=== PATIENT | male | born 1980 | race Caucasian/White ===

== ENCOUNTER → 2019-04-23 15:09 | Outpatient (CLI) | payer OTHER, SELFPAY ==
--- NOTE | 2019-04-23 15:14 | XR_ITS ---
PROCEDURE: XR CHEST 2V CLINICAL HISTORY: L Rib Injury Pain following injury COMPARISON: No exams were available for comparison FINDINGS: The cardiomediastinal silhouette and pulmonary vascularity are within normal limits. The lungs are clear without infiltrates, suspicious nodules, or pleural effusions. No acute bony abnormalities. IMPRESSION: No acute findings. Dictated by: Carlo Stewart MD 04/23/2019 16:08 Electronically signed by Carlo Stewart MD in [place] 04/23/2019 16:08
== END ==
PROVIDERS: PCP Nurse Practitioner Family; Visit Provider Nurse Practitioner Family
DX: S29.9XXA Unspecified injury of thorax, initial encounter (principal)
CPT/HCPCS: 71046

== ENCOUNTER 2019-07-29 19:45 | Emergency (ER) | payer OTHER, SELFPAY ==
[2019-07-29 19:48] VITALS: BP 143/88; PULSE 78; RESP 19; TEMP 36.8; O2SAT 100; BMI 26.6
--- NOTE | 2019-07-29 20:06 | HMH.EDUTC ---
[facility] [place] Clinical Impression: Cellulitis Qualifiers: Site of cellulitis: unspecified site Qualified Code(s): L03.90 - Cellulitis, unspecified Disposition: Home, Self-Care Condition on Discharge: Good Instructions: Cellulitis, Amoxicillin and Clavulanic Acid Additional Instructions: Keep wound area clean and dry *Take medication as prescribed Follow up with family doctor if no improvement or any worsening of symptoms in the next 48-72 hours Return if needed Straight to ER if any life threatening symptoms Prescriptions: Amoxicillin/Potassium Clav [Augmentin 875-125 Tablet] 1 tab PO Q12H 7 Days #14 tab Transmission Status: Pending to [facility] Referrals: Magdi Ward MD [Primary Care Provider] - As needed Time of Disposition: 20:21 Medical Decision Making - Rony Inquiry Pt receiving controlled substance: No Rony was queried for this patient: No Vital Signs: 07/29/19 19:48 Temperature 98.2 F Temperature Source Oral Pulse Rate [Radial] 78 Respiratory Rate 19 Blood Pressure [Right Arm] 143/88 H Blood Pressure Mean [Right Arm] 106 Blood Pressure Source [Right Arm] Automatic Cuff Blood Pressure Position [Right Arm] Sitting 02 Sat by Pulse Oximetry 100 Oxygen Delivery Method Room Air [facility] [place] - General Stated complaint: ao 620 CAT BIT l THUMB Time Seen by Provider: 07/29/19 20:06 Mode of Arrival: Ambulatory Source of Information: Patient Limitations: No Limitations Description of Symptoms (Recalled from Triage Doc. by RN): CATFISH BITE HEENT Symptoms (Recalled from RN notes): No Resp Symptoms (Recalled from RN notes): No Skin Symptoms (Recalled from RN notes): Yes MS Symptoms (Recalled from RN notes): No Functional Status (Recalled from RN notes): WNL - History of Present Illness Provider Complaint: Patient states that he was fishing a couple of days ago and a catfish bite him on the left thumb States that ever since he has been having swelling and redness in his left thumb States that he thought it was infected and poked it to see if any infection come out but nothing did and today it was swollen worse so he came in - Related Data Home Medications Medication Instructions Recorded Confirmed buprenorphine 8 mg-naloxone 2 mg SUBLINGUAL 04/23/19 05/06/19 sublingual tablet Previous Rx's Medication Instructions Recorded ibuprofen 600 mg tablet 600 mg PO TID 14 Days #42 tab 05/06/19 prednisone 20 mg tablet 20 mg PO BID 5 Days #10 tab 05/06/19 Amoxicillin/Potassium Clav 1 tab PO Q12H 7 Days #14 tab 07/29/19 [Augmentin 875-125 Tablet] Allergies Allergy/AdvReac Type Severity Reaction Status Date / Time No Known Allergies Allergy Verified 05/06/19 14:24 - Worker's Comp Is this a Worker's Comp case?: No [facility] History - Hepatitis A Screen Drug use history?: No High risk sexual behaviors?: No History of sexually transmitted infection?: No Currently employed?: No Childcare worker?: No Do you have indoor plumbing?: Yes Do you have electricity?: Yes Attestation statement:: This patient has been screened for Hepatitis A risk factors. I have reviewed the patient's past medical history: Yes - Social History Educational Level: Completed High School Smoking Status: Never smoker Tobacco Type: smokeless tobacco Alcohol Intake: never Substance Use Type: former substance user, painkillers, prescription drug Occupational Status: employed Housing: house Household Members: spouse ROS Obtained: Yes All systems reviewed & no additional complaints, Yes Systems reviewed as appropriate & no additional complaints - Constitutional Constitutional: Reports system reviewed and no additional complaints, except as docu - Eyes Eyes: Reports system reviewed and no additional complaints, except as docu - ENT Ears, Nose, Mouth, and Throat: Reports system reviewed and no additional complaints, except as docu - Cardiovascular Cardiovascular: Reports system revi
[2019-07-29 20:30] VITALS: BP 143/88; PULSE 78; RESP 19; TEMP 36.8; O2SAT 100
== END 2019-07-29 20:31 | disposition home or self-care (01) ==
PROVIDERS: Emergency Provider Nurse Practitioner; PCP Emergency Medicine
DX: L03.012 Cellulitis of left finger (principal)
CPT/HCPCS: 99201

== ENCOUNTER 2019-08-11 11:19 | Emergency (ER) | payer OTHER, SELFPAY ==
[2019-08-11 11:30] VITALS: BP 138/69; PULSE 92; RESP 18; TEMP 37.2; O2SAT 100; BMI 25.8
[2019-08-11 11:49] VITALS: BMI 25.8
--- NOTE | 2019-08-11 11:50 | XR_ITS ---
PROCEDURE: XR ANKLE RT 2V CLINICAL INDICATION: twisted ankle Twisting injury with pain COMPARISON: No exams were available for comparison FINDINGS: Prominent soft tissue swelling is present laterally. No obvious fracture or dislocation. IMPRESSION: Soft tissue swelling otherwise negative Dictated by: Carlo Stewart MD 08/11/2019 12:20 Electronically signed by Carlo Stewart MD in [place] 08/11/2019 12:20
--- NOTE | 2019-08-11 12:06 | XR_ITS ---
PROCEDURE: XR FOOT RT 2V CLINICAL INDICATION: twisted R foot/ankle Pain COMPARISON: No exams were available for comparison FINDINGS: No fracture or dislocation. No lytic or blastic change. There is normal mineralization. The joint spaces are well-preserved. No significant degenerative/arthritic changes. No erosive changes evident. Other findings:None. IMPRESSION: No acute findings. Dictated by: Carlo Stewart MD 08/11/2019 12:19 Electronically signed by Carlo Stewart MD in [place] 08/11/2019 12:19
--- NOTE | 2019-08-11 12:17 | HMH.EDEXTP ---
ED Disposition Clinical Impression: Ankle sprain and strain Disposition: Home, Self-Care Condition on Discharge: Good Instructions: Sprain Prescriptions: Nabumetone 750 mg PO BID 10 Days #20 tab Transmission Status: Sent to [facility] Referrals: Magdi Ward MD [Primary Care Provider] - - Critical Care Critical Care Time: No Attestation: On 08/11/19, the high probability of a clinically significant, sudden or life threatening deterioration of the following system(s) required my full and direct attention, intervention and personal management. The time I documented below is in addition to time spent performing reported procedures but includes the following listed in this critical care notation. Medical Decision Making - Medical Records Medical records reviewed: Yes: I reviewed the patient's medical records. - Rony Inquiry Pt receiving controlled substance: No Vital Signs: 08/11/19 11:30 Temperature 98.9 F Temperature Source Oral Pulse Rate [Left Radial] 92 H Respiratory Rate 18 Blood Pressure [Left Arm] 138/69 Blood Pressure Mean [Left Arm] 92 Blood Pressure Source [Left Arm] Automatic Cuff Blood Pressure Position [Left Arm] Sitting 02 Sat by Pulse Oximetry 100 Oxygen Delivery Method Room Air - Lab Data Lab results reviewed: Yes: I reviewed the patient's lab results. Orders (Tests/Meds): ORDERS Category Date Time Status Ankle XR - Right 2 Views [XR ankle RT 2V] Stat Exams 08/11/19 11:50 Taken Foot XR right 2 views [XR foot RT 2V] Stat Exams 08/11/19 12:06 Taken - Radiology Data #1 Image(s): Ankle, Foot/Toes Preliminary Findings: Normal/NAD Extremity Problem HPI - General Chief complaint: Extremity Injury, Lower Stated complaint: rt ankle pain AO 08/09/19 Time Seen by Provider: 08/11/19 12:00 Mode of Arrival: Ambulatory Source of Information: Patient Limitations: No Limitations Description of Symptoms (Recalled from ER Triage Doc. by RN): Pt reports R ankle pain 2 days ago. Pt states he stepped down off of a trailer into a hole. Swelling and bruising noted to R foot and ankle. - History of Present Illness HPI Narrative: 39-year-old male presents the emergency department complaining of right ankle pain. 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 Since then he has been elevating and taking Tylenol and ibuprofen and also has a ankle brace on as well. He states is difficult to ambulate. He rates his pain 4 out of 10 with ambulation. Which is the exacerbating factor. Alleviating factors include ice and elevation.Patient denies any recent cough or shortness of breath, patient denies any sore throat or headache, patient denies any loss of taste or smell, patient denies any malaise or fatigue, patient denies any abdominal pain nausea vomiting or diarrhea. - Related Data Home Medications Medication Instructions Recorded Confirmed buprenorphine 8 mg-naloxone 2 mg SUBLINGUAL 04/23/19 05/06/19 sublingual tablet Previous Rx's Medication Instructions Recorded ibuprofen 600 mg tablet 600 mg PO TID 14 Days #42 tab 05/06/19 prednisone 20 mg tablet 20 mg PO BID 5 Days #10 tab 05/06/19 Amoxicillin/Potassium Clav 1 tab PO Q12H 7 Days #14 tab 07/29/19 [Augmentin 875-125 Tablet] Nabumetone 750 mg PO BID 10 Days #20 tab 08/11/19 Allergies Allergy/AdvReac Type Severity Reaction Status Date / Time No Known Allergies Allergy Verified 05/06/19 14:24 [facility] History - Hepatitis A Screen Drug use history?: No High risk sexual behaviors?: No History of sexually transmitted infection?: No Currently employed?: No Childcare worker?: No Do you have indoor plumbing?: Yes Do you have electricity?: Yes Attestation statement:: This patient has been screened for Hepatitis A risk factors. I have reviewed the patient's past medical history: Yes Medical History: Denies:: Diabetes Mellitus Type 1, Diabetes Mellit
[2019-08-11 12:26] VITALS: BP 119/79; PULSE 79; RESP 18; TEMP 36.9; O2SAT 100
== END 2019-08-11 12:26 | disposition home or self-care (01) ==
PROVIDERS: Emergency Provider Family Medicine; PCP Emergency Medicine
DX: S93.401A Sprain of unspecified ligament of right ankle, initial encounter (principal); X50.1XXA Overexertion from prolonged static or awkward postures, initial encounter; Y92.89 Other specified places as the place of occurrence of the external cause
CPT/HCPCS: 73600; 73620; 99282

== ENCOUNTER 2022-03-28 19:26 | Emergency (ER) | payer OTHER, SELFPAY ==
[2022-03-28 19:45] VITALS: BP 132/87; PULSE 81; RESP 20; TEMP 36.9; O2SAT 98; BMI 28.8
--- NOTE | 2022-03-28 19:46 | EXP.UTC ---
Discharge Plan Disposition Patient Disposition: Home, Self-Care Condition: Good Prescriptions Prescriptions: New ofloxacin 0.3 % drops See Rx Instructions .ROUTE .COMPLEX Qty: 5 0RF Rx Instructions: put 2 drps into affected eyes every 2 h x 2 days, then 1 drp 4 times/day days 3-7 No Action buprenorphine-naloxone 8-2 mg tablet, sublingual SUBLINGUAL Label Comments: PLACE 2 TABLETS SUBLINGUAL ONCE A DAY nabumetone 750 MG tablet 750 mg PO BID 10 Days Qty: 20 0RF Referrals Follow up/Referrals: Provider,Referral, MD [Primary Care Provider] - See instructions Activity Restrictions/Add. Instructions Additional Instructions/Restrictions: Apply the Erythromycin eye ointment that we supplied you to your right eye every 4 hours while you are awake for the next 7 days. I am going to send an antibiotic eye drop to you pharmacy. You don't need to pick it up unless your symptoms spread to both eyes. Most people don't like to put the erythromycin ointment in both eyes because it clouds your vision for a short time. If you do start the eye drop, then stop the erythromycin eye ointment and use the drops in both eyes. Take tylenol or ibuprofen for pain or fever. Follow up with your regular doctor. If you're having at least some improvement in 48 hours then please follow up to have your eye rechecked. GO TO THE ER FOR ANY WORSENING SYMPTOMS Clinical Impressions Clinical Impression: Conjunctivitis of right eye Instructions Patient Instructions: How to Instill Eye Drops, DI for Conjunctivitis, Erythromycin Ophthalmic Discharge ED Provider: Endy Fu [facility] General Stated complaint: Right eye red and swollen Time Seen by Provider: 03/28/22 19:46 History of Present Illness Provider Complaint: He states that for the past 3 days he has had right eye irritation, swelling and matting with greenish discharge. He states that his symptoms started the day after he was grinding and felt like something went in his eye. Also, his daughter was diagnosed with conjunctivitis right before his symptoms started. So, he is not sure if he has an infection or something in his eye. He denies any vision changes and eye pain (other than the irritation feeling). Related Data Home Medications Medication Instructions Recorded Confirmed buprenorphine 8 mg-naloxone 2 mg sublingual 04/23/19 05/06/19 sublingual tablet Previous Rx's Medication Instructions Recorded nabumetone 750 mg tablet 750 mg PO BID 10 days #20 tabs 08/11/19 ofloxacin 0.3 % eye drops See Rx Instructions ophthalmic 03/28/22 (eye) .COMPLEX #5 mL Allergies Allergy/AdvReac Type Severity Reaction Status Date / Time No Known Allergies Allergy Verified 03/28/22 19:56 [facility] Disclaimer: The information contained in this section may have been updated after the patient was seen, as this information can be updated by other users. Social History Smoking Status: Unknown if ever smoked alcohol intake: never substance use type: former substance user current occupational status: other Travel in the last 8 weeks: None household members: spouse housing: house ROS Obtained: Yes All systems reviewed & no additional complaints except as documented Constitutional Constitutional: Denies chills and Denies fever(s) Eyes Eyes: Reports as per HPI and Reports eye discharge ENT Ears, Nose, Mouth, and Throat: Denies dizziness, Denies otalgia and Denies sore throat Cardiovascular Cardiovascular: Denies chest pain Respiratory Respiratory: Denies shortness of breath, Denies chest congestion, Denies cough, Denies stridor and Denies wheezing Gastrointestinal Gastrointestingal: Denies nausea or vomiting Musculoskeletal Musculoskeletal: Reports system reviewed and no additional complaints, except as documented and Denies arthralgias Integumentary/Breasts Skin/Breast: Denies
[2022-03-28 20:33] VITALS: BP 132/87; PULSE 81; RESP 20; TEMP 36.9; O2SAT 98
== END 2022-03-28 20:27 | disposition home or self-care (01) ==
PROVIDERS: Emergency Provider Nurse Practitioner Family
DX: H10.9 Unspecified conjunctivitis (principal)
CPT/HCPCS: 99212; 99213; G0463

== ENCOUNTER 2024-08-30 11:54 | Emergency (ER) | payer BC, SELFPAY ==
--- OUTSIDE RECORDS SUMMARY | 2024-08-30 11:59 | XMS_ITS | Clinical Summary ---
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 Name Role Phone Unavailable Primary Care Provider Unavailabl e Immunizations Immunization Administration Dates Next Due Hep A / Hep B 05/21/2012,11/13/2011 Family History Medical History Relation Name Comments Scoliosis Brother Arthritis Father Conversions - Other Maternal Grandfather Als-Parkinsonism/Dementia Complex 1 Arthritis Mother Scoliosis Sister Relation Name Status Comments Brother Father Maternal Grandfather Mother Sister Social History Tobacco Use Types Packs/Day Years Used Date Smoking Tobacco: Never Sex and Gender Information Value Date Recorded Sex Assigned at Not on file Legal Sex Male 5:56 PM EDT Gender Identity Not on file Sexual Orientation Not on file Last Filed Vital Signs Vital Sign Reading Time Taken Comments Blood Pressure - - Pulse - - Temperature - - Respiratory Rate - - Oxygen Saturation - - Inhaled Oxygen Concentration - - Weight 68.5 kg (150 lb 15.9 oz) 05/21/2012 2:19 PM EDT Height 172.7 cm (5' 8 ) 05/21/2012 2:19 PM EDT Body Mass Index 22.96 05/21/2012 2:19 PM EDT Plan of Treatment Not on file
[2024-08-30 12:01] VITALS: BP 143/88; PULSE 78; RESP 16; TEMP 36.8; O2SAT 100; BMI 30.4
[2024-08-30] MEDS: MORPHINE 4MG/ML SYRINGE 4 MG IV (12:16)
[2024-08-30] MEDS: LACTATED RINGERS 1000ML 1,000 ML 999 ML IV (12:16)
[2024-08-30] MEDS: ONDANSETRON 4MG/2ML VIAL 4 MG IV (12:16)
[2024-08-30 12:21] VITALS: BP 180/89; PULSE 74; RESP 16; O2SAT 100
--- NOTE | 2024-08-30 12:26 | PC.NURSE ---
[facility]
[2024-08-30 12:31] VITALS: BP 167/90; PULSE 74; RESP 15; O2SAT 100
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
--- NOTE | 2024-08-30 12:44 | PC.NURSE ---
Patient report called to BREONNA Carrasco at [facility].
--- NOTE | 2024-08-30 12:46 | PC.NURSE ---
EMS called for transport
[2024-08-30] MEDS: HYDROMORPHONE 2MG/ML SYRINGE 0.5 MG IV (12:53)
[2024-08-30 13:00] VITALS: BP 169/93; PULSE 65; RESP 11; O2SAT 100
--- NOTE | 2024-08-30 13:06 | PC.NURSE ---
Antibiotic Cream applied to cedeño as well as moist gauze per Dr. Denton's order.
--- NOTE | 2024-08-30 13:26 | PC.NURSE ---
EMS at bedside for transport to [facility]. VSS. Respirations even and unlabored. at bedside.
[2024-08-30 13:28] VITALS: BP 167/83; PULSE 89; RESP 17; TEMP 36.8; O2SAT 100
== END 2024-08-30 13:33 | disposition other institution (70) ==
PROVIDERS: Emergency Provider Student in an Organized Health Care Education/Training Program; PCP Nurse Practitioner
DX: T21.22XA Burn of second degree of abdominal wall, initial encounter (principal); X12.XXXA Contact with other hot fluids, initial encounter
CPT/HCPCS: 96361; 96374; 96375; 99285; J1171; J2270; J2405; J7120